=== PATIENT | female | born 1945 | race Caucasian/White ===

== ENCOUNTER 2017-06-25 14:23 | Outpatient (CLI) | payer MEDICARE ==
--- NOTE | 2017-06-25 15:01 | RAD ---
LULMBAR SPINE THREE VIEWS: Technique: Neutral lateral, flexion lateral, and extension lateral imaging of the lumbar spine. Date: 06-25-17 Comparison: None. History: Lumbar radiculopathy, low back pain with pain radiating down both legs for two weeks. FINDINGS: Assuming five lumbar type vertebral bodies, bilateral pedicle screws are present at the L4-5 levels w ith an intervertebral disc device present at L4-5. The neutral lateral examination demonstrates anter olisthesis of L4 on L5 measuring in the 9-10 mm range. With flexion this anterolisthesis measures marissa roximately 10 mm and with extension this anterolisthesis measures approximately 10 mm. No acute fract ure. No frontal imaging is available. IMPRESSION: Assuming post-operative hardware at the L4-5 vertebral bodies there is L4-5 anterolisthesis measuring up to 1 cm, stable with flexion, extension and neutral imaging. Numbering of the vertebral bodies is limited as no frontal imaging is available. It is conceivable that the hardware is actually at the L 5-S1 level. POS: JAY JAY
== END 2017-06-25 14:24 | disposition home or self-care (01) ==
LOC: TBSIIMAG 14:23
PROVIDERS: ATTEND Neurological Surgery
DX: M54.16 Radiculopathy, lumbar region (principal); M43.16 Spondylolisthesis, lumbar region; Z98.1 Arthrodesis status
CPT/HCPCS: 72100

== ENCOUNTER 2018-01-15 07:39 | Day surgery (SDC) | payer MEDICARE ==
[2018-01-14 10:41] VITALS: BMI 25.8
[2018-01-15 08:34] LABS: Hemoglobin 14.8 g/dL (12.0-16.0); Mean Corpuscular HGB CONC 33.7 g/dL (32.0-36.0); Mean Corpuscular Hemoglobin 31.7 pg (27.0-31.0); Mean Corpuscular Volume 93.9 fL (78.0-98.0); Mean Platelet Volume 7.4 fL (7.4-10.4); Platelet Count 240 thou/uL (130-400); RBC Distribution Width 12.7 % (11.5-14.5); Red Blood Cell (RBC) Count 4.68 mill/uL (4.20-5.40)
--- NOTE | 2018-01-15 09:01 | HP ---
CHIEF COMPLAINT: Low back pain. HISTORY OF PRESENT ILLNESS: Ms. Hamilton is a 72-year-old female that presents with low back pain and pain that radiates into her gluteus muscles bilaterally. She has had this pain since 05/2017 and it has been worse since that time. She has no focal weakness. On exam, she denies any bowel or bladder incontinence. She had a prior lumbar L4-L5 fusion with Dr. Limon in 2013. The pain is made better with analgesics. She has a positive straight leg raise bilaterally. She has had no PT or injections. As of 12/15/2017, Ms. Loving came back to our office following injections and therapy. She states that it helps; however, the pain returned and she is unable to stand for more than 5 minutes. Shopping the grocery store is painful and after 30 minutes of trying to walk, she can barely make it to the car. Radiating pain into the posterior thigh, pain with burning and some radiation to the feet and with enough standing there is leg weakness. REVIEW OF SYSTEMS: Ten point review of systems has been completed and is negative except for what is stated above in HPI. PAST MEDICAL HISTORY: Asthma, RA, OA, depression. PAST SURGICAL HISTORY: 1. Tonsillectomy in 1963. 2. Hysterectomy in 1989. 3. Breast biopsy in 2002. 4. Cholecystectomy in 2000. 5. Neck surgery. 6. Gallbladder. FAMILY HISTORY: Father is alive. Mother is . SOCIAL HISTORY: The patient is . She is retired from teaching. She drinks socially, does not smoke. MEDICATIONS: Prilosec, citalopram. ALLERGIES: SULFA, and IODINE. PHYSICAL EXAMINATION: HEAD, EARS, NOSE AND THROAT: Normocephalic, atraumatic. Hearing is intact. Moist mucous membranes. Trachea is midline. No masses are noted. EYES: Pupils are equal, round, reactive to light. Extraocular movements are intact. Sclerae is not injected, nonicteric. PSYCHIATRIC: Normal mood and affect. PULMONARY: The patient has normal work of breathing in room air. CARDIOVASCULAR: Regular rate and rhythm. MUSCULOSKELETAL: Lower extremities, 5/5 strength in bilateral iliopsoas, quadriceps, hamstrings, right TA and EHL. No sensory defects bilaterally. Tender to palpate midline spine. NEUROLOGIC: Gait and station is normal. Sensory exam: Some old ulceration in right greater than left L4-L5. Reflex exam hypoactive knees and ankles. No Babinskis. MRI stenosis of L3-L4 above fusion, right foraminal stenosis L4-L5, but in the foramen that is immobilized. ASSESSMENT AND PLAN: 1. 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 2. Stenosis with neurogenic claudication, failure of physical therapy and injections though she felt has offered laminectomy of L3-L4, We have discussed the indications, risks and benefits, and alternatives, and expected results of surgery. The risks discussed included, but are not limited to bleeding, infection, CSF leak, nerve damage, weakness, incontinence, cauda equina injury, arachnoiditis, paralysis, ventilator dependence, wheelchair dependence, loss of vision, cardiopulmonary complications of anesthesia or long-term complications discussed included, but were not limited to spinal instability and further need for surgery. She states that she understands the risks and is willing to proceed with surgery. POOJA
[2018-01-15 09:30] LABS: INR-International Normal Ratio 0.9; PTT 25.7 SEC (22.9-36.1); Prothrombin Time 12.4 SEC (12.0-14.7)
[2018-01-15] MEDS ORDERED: CEFAZOLIN/Water 2 GM/20 ML SYRINGE ONE ×2 (10:32→16:07)
[2018-01-15] MEDS ORDERED: Thrombin 5000 UNITS/5 ML VIAL ONE (11:41)
[2018-01-15] MEDS ORDERED: Bupivacaine HCl 0.5%/Epinephrine 1:200,000/PF 30 ml Vial ONE (11:41)
[2018-01-15] MEDS ORDERED: Sodium Chloride 0.9% 10 ML ONE (11:41)
[2018-01-15] MEDS ORDERED: Fentanyl 100 MCG/2 ML VIAL ONE ×2 (11:45→14:36)
--- NOTE | 2018-01-15 13:08 | EKG ---
Test Reason : PREOP Blood Pressure : / mmHG Vent. Rate : 067 BPM Atrial Rate : 067 BPM P-R Int : 150 ms QRS Dur : 080 ms QT Int : 424 ms P-R-T Axes : 053 -14 036 degrees QTc Int : 448 ms Normal sinus rhythm T wave abnormality, consider lateral ischemia Abnormal ECG When compared with ECG of 16-MAR-2014 13:58, No significant change was found Confirmed by MECHE AGUILAR, . SNoah (4) on 01/15/2018 1:08:30 PM Referred By: BLAIR Confirmed By:DR. Miranda MCGREGOR MD
[2018-01-15] MEDS ORDERED: Acetaminophen/Codeine 30-300mg Tablet ONE (16:33)
[2018-01-15] MEDS ORDERED: Ondansetron ODT 4 MG TAB ONE (16:33)
--- NOTE | 2018-01-15 20:09 | OP ---
DATE OF PROCEDURE: 01/15/2018 SURGEON: Brooke Limon M.D. CHOPPING MACHINE OPERATOR: Suki Rodríguez PA-C PREOPERATIVE INDICATION: Treat pain, prevent neurological deterioration. PREOPERATIVE DIAGNOSES: Adjacent segment stenosis above previous fusion with neurogenic claudication at L3-L4, some residual foraminal stenosis L4-L5. POSTOPERATIVE DIAGNOSES: Adjacent segment stenosis above previous fusion with neurogenic claudicatio n at L3-L4, some residual foraminal stenosis L4-L5. OPERATIVE PROCEDURE: Reopening lumbar incision, repeat laminotomy, foraminotomy L4-L5. New laminect thierno, medial facetectomy, foraminotomy L3-L4, operating microscope. PREOPERATIVE MEDICATION: Ancef 2 grams IV. DRAIN NUMBER: Zero. DRAIN TYPE: None. OPERATIVE DICTATION: The patient was brought to the operating room. General endotracheal anesthesia was induced. The patient was positioned prone on gel-filled chest rolls. A lateral fluoro radiogra ph was used to confirm the upper half of the previous incision would give us access from L3-L5 segmen ts of the lumbosacral spine. The lumbar skin was sterilely prepped and draped. We were reopened her previous incision with a 10 blade knife. We controlled bleeding with bipolar and monopolar cautery. We used monopolar cautery to dissect through subcutaneous tissues to thoracodorsal fascia. We inci sed the fascia in the midline and we reflected the paraspinal muscles off the spinous process and prieto love of L3. We reflected scar tissue off the remainder of the lamina of L4 and the pars articularis o n the left of L4. We exposed the pedicle screws in the L4 pedicles. This was done in the L4-5 facet joint as well. We placed self-retaining retractors. A lateral fluoro radiograph confirmed the leve ls upon which we were operating. Adson rongeur removed the spinous process of L3. We fashioned a la minectomy at L3 with a Kerrison rongeur. We widened our laminectomy defect until we were flushed wit h the L3 and L4 pedicles. There was a small remnant of the superior portion of the lamina of L4. We carefully dissected scar tissue from underneath it and removed it in a piecemeal fashion with Kerris on rongeurs were then brought the operative microscope into the field. Under microscopic magnification using microsurgical techniques, we carefully dissected scar tissue aw ay from the L4 pedicles, and a freed the nerve roots in their foramina. We dissected scar tissue off the remainder of the lateral confines of the spinal canal down past the foramen. Performed with a f oraminotomy Kerrison to perform foraminotomies over the exiting L4 nerve root and the L4-5 foramen. We ensured a Fish ball could pass out the L3 foramen by performing foraminotomies there, a Fish b all probe passed through the lateral recess at L3-4 and out the L4 foramen without impingement. We h ad decompression secured. We turned our attention to closure. We irrigated copiously with bacitracin irrigation. Hemostasis was excellent. We treated the wound w ith vancomycin powder. We closed the wound in anatomic layers and applied a sterile dressing. Clean case and no contamination.
== END 2018-01-15 17:19 | disposition home or self-care (01) ==
LOC: SDC 07:39
PROVIDERS: ATTEND Neurological Surgery
PROC: 01NB0ZZ Release Lumbar Nerve, Open Approach (ICD-10-PCS; principal; 2018-01-15)
DX: M48.062 Spinal stenosis, lumbar region with neurogenic claudication (principal); Z98.1 Arthrodesis status; Z79.1 Long term (current) use of non-steroidal anti-inflammatories (NSAID); Z79.82 Long term (current) use of aspirin; Z79.899 Other long term (current) drug therapy; Z88.2 Allergy status to sulfonamides; Z91.013 Allergy to seafood; Z91.041 Radiographic dye allergy status
CPT/HCPCS: 36415; 76001; 85027; 85610; 85730; 93005; 93010; 96374; A4216; J0670; J3010; J3370; J3490; Q0162